=== PATIENT | male | born 1950 | race Caucasian/White ===

== ENCOUNTER 2021-01-05 09:43 | Outpatient (REF) | payer MEDICARE, OTHER, SELFPAY ==
[2021-01-05 10:24] LABS: MANUAL DIFF FLAG NO
[2021-01-05 10:29] LABS: Basophils Absolute Auto 0.1 X10*3/uL (0.0-0.2); Basophils Percent Auto 1.5 % (0-2); Eosinophils Absolute Auto 0.1 X10*3/uL (0.0-0.4); Eosinophils Percent Auto 3.1 % (0-4); Hematocrit 40.2 % (42-52); Hemoglobin 13.9 g/dl (14.0-18.0); Imm Gran Abs Auto 0.02 X10*3/uL (0.00-0.03); Imm Gran Pct Auto 0.4 % (0.0-0.4); Lymphocytes Absolute Auto 1.4 X10*3/uL (1.2-4.9); Lymphocytes Percent Auto 30.5 % (20-40); Mean Corpuscular HGB Conc 34.6 g/dl (31.0-36.0); Mean Corpuscular Hemoglobin 32.2 pg (27.0-33.0); Mean Corpuscular Volume 93.1 fL (80-98); Mean Platelet Volume 9.7 fL (9.4-12.4); Monocytes Absolute Auto 0.5 X10*3/uL (0.1-1.2); Monocytes Percent Auto 10.8 % (2-11); Neutrophils Absolute Auto 2.4 X10*3/uL (2.0-8.3); Neutrophils Percent Auto 53.7 % (45-73); Platelet Count 158 X10*3/uL (160-400); Red Blood Count 4.32 X10*6/uL (4.60-5.80); Red Cell Distribution Width 13.4 % (11.0-16.0); White Blood Count 4.5 X10*3/uL (4.8-10.8)
[2021-01-05 10:54] LABS: Alanine Aminotransferase 44 U/L (0-40); Albumin Level 4.3 g/dL (3.5-5.0); Alkaline Phosphatase 78 U/L (39-117); Anion Gap 13 (12-20); Aspartate Amino Transferase 33 U/L (5-37); Bilirubin Total 1.1 mg/dL (0.0-1.0); Blood Urea Nitrogen 10 mg/dL (9-16); Calcium 9.1 mg/dL (8.4-10.2); Carbon Dioxide 29 mmol/L (22-29); Chloride 103 mmol/L (96-108); Estimated Glomerular Filt Rate > 60; Glucose Random 110 mg/dL (60-115); Potassium 4.1 mmol/L (3.3-5.1); Sodium 141 mmol/L (135-145); Uric Acid 6.9 mg/dL (3.4-7.0)
== END 2021-01-05 09:44 | disposition home or self-care (01) ==
LOC: HO.10HDL 09:43
PROVIDERS: Visit Provider Internal Medicine
DX: I10 Essential (primary) hypertension (principal); M10.9 Gout, unspecified
CPT/HCPCS: 36415; 80053; 84550; 85025

== ENCOUNTER 2021-08-15 08:19 | Outpatient (REF) | payer MEDICARE, OTHER, SELFPAY ==
[2021-08-15 10:13] LABS: MANUAL DIFF FLAG NO
[2021-08-15 10:26] LABS: Basophils Absolute Auto 0.1 X10*3/uL (0.0-0.2); Basophils Percent Auto 1.1 % (0-2); Eosinophils Absolute Auto 0.2 X10*3/uL (0.0-0.4); Eosinophils Percent Auto 4.2 % (0-4); Hematocrit 42.5 % (42-52); Hemoglobin 14.5 g/dl (14.0-18.0); Imm Gran Abs Auto 0.02 X10*3/uL (0.00-0.03); Imm Gran Pct Auto 0.4 % (0.0-0.4); Lymphocytes Absolute Auto 1.8 X10*3/uL (1.2-4.9); Lymphocytes Percent Auto 40.6 % (20-40); Mean Corpuscular HGB Conc 34.1 g/dl (31.0-36.0); Mean Corpuscular Hemoglobin 32.2 pg (27.0-33.0); Mean Corpuscular Volume 94.2 fL (80-98); Mean Platelet Volume 9.9 fL (9.4-12.4); Monocytes Absolute Auto 0.4 X10*3/uL (0.1-1.2); Monocytes Percent Auto 9.5 % (2-11); Neutrophils Percent Auto 44.2 % (45-73); Platelet Count 156 X10*3/uL (160-400); Red Blood Count 4.51 X10*6/uL (4.60-5.80); Red Cell Distribution Width 13.9 % (11.0-16.0); White Blood Count 4.5 X10*3/uL (4.8-10.8)
[2021-08-15 11:01] LABS: Alanine Aminotransferase 42 U/L (0-40); Albumin Level 4.3 g/dL (3.5-5.0); Alkaline Phosphatase 82 U/L (39-117); Anion Gap 13 (12-20); Aspartate Amino Transferase 35 U/L (5-37); Bilirubin Total 1.1 mg/dL (0.0-1.0); Blood Urea Nitrogen 7 mg/dL (9-16); Carbon Dioxide 30 mmol/L (22-29); Chloride 102 mmol/L (96-108); Estimated Glomerular Filt Rate > 60; Glucose Fasting 104 mg/dL (60-99); Potassium 4.2 mmol/L (3.3-5.1); Sodium 141 mmol/L (135-145); Uric Acid 6.8 mg/dL (3.4-7.0)
== END 2021-08-15 08:20 | disposition home or self-care (01) ==
LOC: HO.10HDL 08:19
PROVIDERS: Visit Provider Internal Medicine
DX: I10 Essential (primary) hypertension (principal); Z87.39 Personal history of other diseases of the musculoskeletal system and connective tissue
CPT/HCPCS: 36415; 80053; 84550; 85025

== ENCOUNTER 2021-09-10 07:55 | Outpatient (REF) | payer MEDICARE, OTHER, SELFPAY | END 2021-09-10 07:56 | disposition home or self-care (01) | LOC: HO.CT 07:55 | PROVIDERS: Visit Provider Internal Medicine | DX: Z13.89 Encounter for screening for other disorder (principal) ==

== ENCOUNTER 2021-09-18 08:41 | Outpatient (REF) | payer MEDICARE, OTHER, SELFPAY ==
--- NOTE | ~2021-09-18 | CT_ITS ---
EXAMINATION: CT ABDOMEN AND PELVIS WITHOUT CONTRAST CLINICAL INFORMATION: History of prostate cancer. Elevated liver function tests. COMPARISON: Previous abdominal ultrasound November 2011 TECHNIQUE: Multidetector volumetric imaging was performed from the superior aspect of the liver through the pubic symphysis. Sagittal and coronal reformatted images were obtained on the technologist's workstation. This CT examination was performed using dose optimization techniques as appropriate, variously including the following: *Automated exposure control *Adjustment of mA and/or kV according to patient size (this includes techniques or standardized protocols for targeted exams where dose is matched to indication/reason for exam; i.e. extremities or head) *Use of iterative reconstruction technique DLP: 703 mGy-cm FINDINGS: LUNG BASES: The visualized lung bases are unremarkable. LIVER, GALLBLADDER, AND BILIARY TREE: The liver is normal in size, shape, and attenuation. No focal hepatic lesion or biliary ductal dilatation is present. There are small gallstones in the gallbladder. The gallbladder is otherwise normal. PANCREAS: Unremarkable. SPLEEN: The spleen is slightly enlarged measuring 14 cm in length. ADRENAL GLANDS: Unremarkable. KIDNEYS AND URETERS: There is a 1 cm high attenuation lesion exophytic to the upper pole of the right kidney probably representing a hyperdense cyst. There is a 1 cm low-attenuation lesion exophytic to the lower pole of the left kidney. Hounsfield units without contrast measure 16 and this probably represents a simple cyst. No imaging follow-up needed. The kidneys are otherwise unremarkable. BLADDER: Not optimally distended. May be mild diffuse bladder wall thickening. GASTROINTESTINAL TRACT: The small and large bowel are unremarkable. The appendix is unremarkable. ABDOMINAL WALL: No significant hernia is appreciated. LYMPH NODES: Normal. VASCULAR: Unremarkable. PELVIC VISCERA: There are radiation seeds in the prostate gland. OSSEOUS STRUCTURES: There are degenerative changes of the spine. No fracture or bone lesion is seen. CT/CT abdomen pelvis wo con IMPRESSION: Gallstones. Normal-appearing liver. Slightly enlarged spleen. Bilateral renal cysts. Radiation seeds in the prostate gland. Question mild diffuse bladder wall thickening.
== END 2021-09-18 08:42 | disposition home or self-care (01) ==
LOC: HO.CT 08:41
PROVIDERS: Visit Provider Internal Medicine
DX: Z85.46 Personal history of malignant neoplasm of prostate (principal)
CPT/HCPCS: 74176

== ENCOUNTER 2022-02-07 07:56 | Outpatient (REF) | payer MEDICARE, OTHER, SELFPAY ==
[2022-02-07 11:36] LABS: Cholesterol 127 mg/dL; HDL Cholesterol 33 mg/dL; LDL Cholesterol Calculated 83 mg/dl; Triglycerides 57 mg/dL
[2022-02-07 18:31] LABS: Prostate Specific Antigen Scr 0.07 ng/mL (<0.05-4.0)
== END 2022-02-07 07:57 | disposition home or self-care (01) ==
LOC: HO.HMGCLDS 07:56
PROVIDERS: PCP Internal Medicine; Visit Provider Internal Medicine
DX: Z12.5 Encounter for screening for malignant neoplasm of prostate (principal); E03.9 Hypothyroidism, unspecified; I10 Essential (primary) hypertension; M10.9 Gout, unspecified
CPT/HCPCS: 36415; 80061; 84153

== ENCOUNTER 2022-06-14 08:24 | Outpatient (REF) | payer MEDICARE, OTHER, SELFPAY ==
[2022-06-14 10:50] LABS: MANUAL DIFF FLAG NO
[2022-06-14 10:58] LABS: Basophils Percent Auto 0.3 % (0-2); Eosinophils Absolute Auto 0.1 X10*3/uL (0.0-0.4); Eosinophils Percent Auto 1.7 % (0-4); Hematocrit 39.1 % (42.0-52.0); Hemoglobin 13.3 g/dl (14.0-18.0); Imm Gran Abs Auto 0.01 X10*3/uL (0.00-0.03); Imm Gran Pct Auto 0.3 % (0.0-0.4); Lymphocytes Absolute Auto 1.5 X10*3/uL (1.2-4.9); Lymphocytes Percent Auto 44.1 % (20-40); Mean Corpuscular Hemoglobin 31.8 pg (27.0-33.0); Mean Corpuscular Volume 93.5 fL (80.0-98.0); Mean Platelet Volume 9.8 fL (9.4-12.4); Monocytes Absolute Auto 0.3 X10*3/uL (0.1-1.2); Monocytes Percent Auto 8.6 % (2-11); Neutrophils Absolute Auto 1.6 x10*3/uL (2.0-8.3); Platelet Count 223 X10*3/uL (160-400); Red Blood Count 4.18 X10*6/uL (4.60-5.80); Red Cell Distribution Width 13.6 % (11.0-16.0); White Blood Count 3.5 X10*3/uL (4.8-10.8)
[2022-06-14 11:13] LABS: Alanine Aminotransferase 43 U/L (0-40); Albumin Level 4.1 g/dL (3.5-5.0); Alkaline Phosphatase 89 U/L (39-117); Anion Gap 14 (12-20); Aspartate Amino Transferase 40 U/L (5-37); Bilirubin Total 0.8 mg/dL (0.0-1.0); Blood Urea Nitrogen 7 mg/dL (9-16); Calcium 8.6 mg/dL (8.4-10.2); Carbon Dioxide 27 mmol/L (22-29); Chloride 108 mmol/L (96-108); Estimated Glomerular Filt Rate > 60; Glucose Fasting 90 mg/dL (60-99); Potassium 4.1 mmol/L (3.3-5.1); Sodium 145 mmol/L (135-145); Total Protein 6.7 g/dL (6.5-8.0)
== END 2022-06-14 08:25 | disposition home or self-care (01) ==
LOC: HO.10HDL 08:24
PROVIDERS: Visit Provider Internal Medicine
DX: I10 Essential (primary) hypertension (principal); M10.9 Gout, unspecified
CPT/HCPCS: 36415; 80053; 85025

== ENCOUNTER 2023-02-12 08:02 | Outpatient (REF) | payer MEDICARE, OTHER, SELFPAY ==
[2023-02-12 10:37] LABS: MANUAL DIFF FLAG NO
[2023-02-12 10:46] LABS: Basophils Absolute Auto 0.1 X10*3/uL (0.0-0.2); Basophils Percent Auto 1.4 % (0-2); Eosinophils Absolute Auto 0.1 X10*3/uL (0.0-0.4); Eosinophils Percent Auto 3.2 % (0-4); Hematocrit 42.2 % (42.0-52.0); Hemoglobin 14.4 g/dl (14.0-18.0); Imm Gran Abs Auto 0.01 X10*3/uL (0.00-0.03); Imm Gran Pct Auto 0.2 % (0.0-0.4); Lymphocytes Absolute Auto 1.7 X10*3/uL (1.2-4.9); Lymphocytes Percent Auto 37.3 % (20-40); Mean Corpuscular HGB Conc 34.1 g/dl (31.0-36.0); Mean Corpuscular Hemoglobin 32.7 pg (27.0-33.0); Mean Corpuscular Volume 95.9 fL (80.0-98.0); Monocytes Absolute Auto 0.5 X10*3/uL (0.1-1.2); Monocytes Percent Auto 10.9 % (2-11); Neutrophils Absolute Auto 2.1 x10*3/uL (2.0-8.3); Platelet Count 148 X10*3/uL (160-400); Red Cell Distribution Width 15.5 % (11.0-16.0); White Blood Count 4.4 X10*3/uL (4.8-10.8)
[2023-02-12 11:14] LABS: Alanine Aminotransferase 31 U/L (0-40); Albumin Level 4.1 g/dL (3.5-5.0); Alkaline Phosphatase 87 U/L (39-117); Anion Gap 14 (12-20); Aspartate Amino Transferase 28 U/L (5-37); Bilirubin Total 1.4 mg/dL (0.0-1.0); Blood Urea Nitrogen 10 mg/dL (9-16); Calcium 8.9 mg/dL (8.4-10.2); Carbon Dioxide 27 mmol/L (22-29); Chloride 104 mmol/L (96-108); Cholesterol 125 mg/dL; Estimated Glomerular Filt Rate > 60; Glucose Fasting 110 mg/dL (60-99); HDL Cholesterol 29 mg/dL; LDL Cholesterol Calculated 82 mg/dl; Potassium 3.9 mmol/L (3.3-5.1); Sodium 141 mmol/L (135-145); Total Protein 6.6 g/dL (6.5-8.0); Triglycerides 72 mg/dL; Uric Acid 7.1 mg/dL (3.4-7.0)
== END 2023-02-12 08:03 | disposition home or self-care (01) ==
LOC: HO.10HDL 08:02
PROVIDERS: Visit Provider Internal Medicine
DX: Z00.00 Encounter for general adult medical examination without abnormal findings (principal); Z87.39 Personal history of other diseases of the musculoskeletal system and connective tissue; I10 Essential (primary) hypertension; M10.9 Gout, unspecified
CPT/HCPCS: 36415; 80053; 80061; 84550; 85025

== ENCOUNTER 2023-10-06 07:44 | Outpatient (REF) | payer MEDICARE, OTHER, SELFPAY ==
[2023-10-06 10:34] LABS: MANUAL DIFF FLAG NO
[2023-10-06 10:50] LABS: Basophils Absolute Auto 0.1 X10*3/uL (0.0-0.2); Basophils Percent Auto 1.4 % (0-2); Eosinophils Absolute Auto 0.2 X10*3/uL (0.0-0.4); Eosinophils Percent Auto 4.5 % (0-4); Hematocrit 41.5 % (42.0-52.0); Hemoglobin 14.1 g/dl (14.0-18.0); Imm Gran Abs Auto 0.01 X10*3/uL (0.00-0.03); Imm Gran Pct Auto 0.3 % (0.0-0.4); Lymphocytes Absolute Auto 1.4 X10*3/uL (1.2-4.9); Lymphocytes Percent Auto 38.9 % (20-40); Mean Corpuscular Hemoglobin 32.7 pg (27.0-33.0); Mean Corpuscular Volume 96.3 fL (80.0-98.0); Mean Platelet Volume 10.2 fL (9.4-12.4); Monocytes Absolute Auto 0.4 X10*3/uL (0.1-1.2); Monocytes Percent Auto 10.6 % (2-11); Neutrophils Absolute Auto 1.6 x10*3/uL (2.0-8.3); Neutrophils Percent Auto 44.3 % (45-73); Platelet Count 132 X10*3/uL (160-400); Red Blood Count 4.31 X10*6/uL (4.60-5.80); Red Cell Distribution Width 13.2 % (11.0-16.0); White Blood Count 3.6 X10*3/uL (4.8-10.8)
[2023-10-06 11:21] LABS: Alanine Aminotransferase 71 U/L (0-40); Alkaline Phosphatase 82 U/L (39-117); Anion Gap 10 (12-20); Aspartate Amino Transferase 52 U/L (5-37); Bilirubin Total 1.1 mg/dL (0.0-1.0); Blood Urea Nitrogen 15 mg/dL (9-16); Calcium 8.9 mg/dL (8.4-10.2); Carbon Dioxide 31 mmol/L (22-29); Chloride 103 mmol/L (96-108); Estimated Glomerular Filt Rate > 60; Glucose Random 112 mg/dL (60-115); Potassium 3.6 mmol/L (3.3-5.1); Sodium 140 mmol/L (135-145); Total Protein 6.7 g/dL (6.5-8.0); Uric Acid 7.1 mg/dL (3.4-7.0)
== END 2023-10-06 07:45 | disposition home or self-care (01) ==
LOC: HO.10HDL 07:44
PROVIDERS: Visit Provider Internal Medicine
DX: I10 Essential (primary) hypertension (principal); M10.9 Gout, unspecified
CPT/HCPCS: 36415; 80053; 84550; 85025

== ENCOUNTER 2024-01-12 07:35 | Outpatient (REF) | payer MEDICARE, OTHER, SELFPAY ==
[2024-01-12 07:52] LABS: MANUAL DIFF FLAG NO
[2024-01-12 08:00] LABS: Basophils Percent Auto 0.6 % (0-2); Eosinophils Absolute Auto 0.2 X10*3/uL (0.0-0.4); Eosinophils Percent Auto 3.3 % (0-4); Hematocrit 40.5 % (42.0-52.0); Imm Gran Abs Auto 0.02 X10*3/uL (0.00-0.03); Imm Gran Pct Auto 0.4 % (0.0-0.4); Lymphocytes Absolute Auto 1.5 X10*3/uL (1.2-4.9); Lymphocytes Percent Auto 31.2 % (20-40); Mean Corpuscular HGB Conc 34.6 g/dl (31.0-36.0); Mean Corpuscular Hemoglobin 32.9 pg (27.0-33.0); Mean Corpuscular Volume 95.1 fL (80.0-98.0); Monocytes Absolute Auto 0.4 X10*3/uL (0.1-1.2); Monocytes Percent Auto 9.2 % (2-11); Neutrophils Absolute Auto 2.6 x10*3/uL (2.0-8.3); Neutrophils Percent Auto 55.3 % (45-73); Platelet Count 142 X10*3/uL (160-400); Red Blood Count 4.26 X10*6/uL (4.60-5.80); Red Cell Distribution Width 15.1 % (11.0-16.0); White Blood Count 4.8 X10*3/uL (4.8-10.8)
[2024-01-12 08:20] LABS: Alanine Aminotransferase 28 U/L (0-40); Alkaline Phosphatase 106 U/L (39-117); Anion Gap 11 (12-20); Aspartate Amino Transferase 26 U/L (5-37); Blood Urea Nitrogen 7 mg/dL (9-16); Carbon Dioxide 30 mmol/L (22-29); Chloride 102 mmol/L (96-108); Estimated Glomerular Filt Rate > 60; Glucose Random 110 mg/dL (60-115); Potassium 3.8 mmol/L (3.3-5.1); Sodium 139 mmol/L (135-145); Total Protein 6.9 g/dL (6.5-8.0); Uric Acid 7.7 mg/dL (3.4-7.0)
== END 2024-01-12 07:36 | disposition home or self-care (01) ==
LOC: HO.LAB 07:35
PROVIDERS: PCP Internal Medicine; Visit Provider Internal Medicine
DX: M54.9 Dorsalgia, unspecified (principal); M10.9 Gout, unspecified; R79.89 Other specified abnormal findings of blood chemistry; L40.9 Psoriasis, unspecified; D69.6 Thrombocytopenia, unspecified
CPT/HCPCS: 36415; 80053; 84550; 85025

== ENCOUNTER 2024-09-07 07:58 | Outpatient (REF) | payer MEDICARE, OTHER, SELFPAY ==
[2024-09-07 08:17] LABS: MANUAL DIFF FLAG NO
[2024-09-07 09:05] LABS: Basophils Absolute Auto 0.1 X10*3/uL (0.0-0.2); Basophils Percent Auto 1.2 % (0-2); Eosinophils Absolute Auto 0.1 X10*3/uL (0.0-0.4); Hematocrit 42.6 % (42.0-52.0); Hemoglobin 14.9 g/dl (14.0-18.0); Imm Gran Abs Auto 0.02 X10*3/uL (0.00-0.03); Imm Gran Pct Auto 0.5 % (0.0-0.4); Lymphocytes Absolute Auto 1.9 X10*3/uL (1.2-4.9); Mean Corpuscular Hemoglobin 33.3 pg (27.0-33.0); Mean Corpuscular Volume 95.3 fL (80.0-98.0); Mean Platelet Volume 9.5 fL (9.4-12.4); Monocytes Absolute Auto 0.4 X10*3/uL (0.1-1.2); Monocytes Percent Auto 9.8 % (2-11); Neutrophils Absolute Auto 1.8 x10*3/uL (2.0-8.3); Neutrophils Percent Auto 42.5 % (45-73); Platelet Count 138 X10*3/uL (160-400); Red Blood Count 4.47 X10*6/uL (4.60-5.80); Red Cell Distribution Width 14.3 % (11.0-16.0); White Blood Count 4.3 X10*3/uL (4.8-10.8)
[2024-09-07 09:44] LABS: Albumin Level 4.4 g/dL (3.5-5.0); Alkaline Phosphatase 87 U/L (39-117); Anion Gap 11 (12-20); Aspartate Amino Transferase 51 U/L (5-37); Bilirubin Total 1.3 mg/dL (0.0-1.0); Blood Urea Nitrogen 9 mg/dL (9-16); Calcium 9.8 mg/dL (8.4-10.2); Carbon Dioxide 32 mmol/L (22-29); Chloride 102 mmol/L (96-108); Estimated Glomerular Filt Rate > 60; Glucose Random 97 mg/dL (60-115); Potassium 4.2 mmol/L (3.3-5.1); Sodium 141 mmol/L (135-145); Total Protein 7.1 g/dL (6.5-8.0)
[2024-09-07 10:47] LABS: Alanine Aminotransferase 53 U/L (0-40)
== END 2024-09-07 07:59 | disposition home or self-care (01) ==
LOC: HO.LAB 07:58
PROVIDERS: PCP Internal Medicine; Visit Provider Internal Medicine
DX: M10.9 Gout, unspecified (principal); I10 Essential (primary) hypertension
CPT/HCPCS: 36415; 80053; 84550; 85025

== ENCOUNTER 2025-02-21 08:51 | Outpatient (AMB) | payer MEDICARE, OTHER, SELFPAY ==
--- NOTE | 2025-02-21 08:53 | A.OFFPC_ITS ---
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 Accompanied by: Self / Same As Patient Allergies caffeine [Caffeine] Allergy (Mild, Unverified 02/21/25 08:54) PALPATATIONS Tobacco use date assessed: 02/21/25 Fall risk assessment: No Falls in past year Last assessed Fall Risk: 02/21/25 Dental Screening Dental Screen Date: 02/21/25 Did you have a dental visit in the last 12 months?: Yes Did you have a dental problem in the last 6 months where you did not have access to dental care?: No [facility] Medical History (Updated 02/21/25 @ 09:25 by Hawk Wade MD) Chronic gout Basal cell carcinoma (BCC) Pre-diabetes Essential hypertension Prostate cancer Surgical History (Updated 02/21/25 @ 09:09 by Hawk Wade MD) History of colonoscopy (09/23/18) Family History (Updated 02/21/25 @ 09:08 by Nancy Lerma CMA) Mother No problems noted. Father No problems noted. Social History Housing: House Patient Tobacco Use Status: Former Tobacco user e-Cigarette/Vaping Use: Former Use service: No Current occupational status: retired Cognitive needs: No Hearing needs: No Vision needs: Yes (rx glasses) Questionnaire PHQ-9 Over the last 2 weeks, how often have you been bothered by any of the following problems? 1. Little interest or pleasure in doing things: not at all 2. Feeling down, depressed, or hopeless: not at all 3. Trouble falling or staying asleep, or sleeping too much: not at all 4. Feeling tired or having little energy: not at all 5. Poor appetite or overeating: not at all 6. Feeling bad about yourself - or that you are a failure or have let yourself or your family down: not at all 7. Trouble concentrating on things, such as reading the newspaper or watching television: not at all 8. Moving or speaking so slowly that other people could have noticed. Or the opposite - being so fidgety or restless that you have been moving around a lot more than usual: not at all 9. Thoughts that you would be better off or of hurting yourself in some way: not at all Total score: 0 Source: Developed by Drs. Cristóbal Duckworth, Robyn Hauser, Primo Oleary and colleagues, with an educational diego from [employer]. Thrive Questionnaire Date Thrive assessed: 02/21/25 I am a: Patient Within the past 12 months, did the food you bought not last and you didn't have the money to get more?: Never true Within the past 12 months, did you worry whether your food would run out before you got money to buy more?: Never true Do you have trouble paying for medicines?: No Do you have trouble getting transportation to medical appointments?: No Do you have trouble paying your heating and electricity bill?: No Do you have trouble taking care of your child, family member or friend?: No Do you have trouble with day-to-day activities such as bathing, preparing meals, shopping, managing finances, etc.?: No Are you currently unemployed and looking for a job?: No Are you interested in more education?: No THRIVE Score: 0 AUDIT C Alcohol Use Questionnaire (AUDIT-C) 1. How often do you have a drink containing alcohol?: 2-4 times a month 2. How many drinks containing alcohol do you have on a typical day when you are drinking?: 1 or 2 3. How often do you have six or more drinks on one occasion?: Less than monthly Total Score: 3 ALEJANDRO-7 AMB Questionnaire ALEJANDRO-7 Date ALEJANDRO - 7 assessed: 02/21/25 Feeling nervous, anxious, or on edge: 0 = Not at all Not being able to stop or control worryin = Not at all Worrying too much about different things: 0 = Not at all Trouble relaxin = Not at all Being so restless that it is hard to sit still: 0 = Not at all Becoming easily annoyed or irritable: 0 = Not at all Feeling afraid as if something awful might happen: 0 = Not at all Total ALEJANDRO-7 score (0-4 normal; 5-9 mild; 10-14 moderate; 15-21 severe): 0 Source: Developed by Drs. Cristóbal Duckworth, Robyn Hauser, Primo Oleary and colleagues, with an educational diego from [employer]. Physical exam (Primary Care) Vital Signs: Last Vital Signs Temp 97.8 F 02/21/25 08:57 Pulse 69 02/21/25 08:57 BP 134/80 02/21/25 08:57 Pulse Ox 99 02/21/25 08:57 Oxygen Delivery Method Room Air 02/21/25 08:57 BMI result Body Mass Index 30.7 Tobacco/Smoking Status: Tobacco use Status Tobacco use date assessed 02/21/25 02/21/25 08:59 Patient Tobacco Use Status Former Tobacco user 02/21/25 09:07 e-Cigarette/Vaping Use Former Use 02/21/25 09:07 PHQ-9: PHQ-9 Score PHQ-9: Total score 0 02/21/25 09:07 Thrive Assessment: Date of Thrive Assessment Date Thrive assessed 02/21/25 02/21/25 08:59 Coding Level of Care Code New Pt Level 4 (75414) Complex EM visit Add On G2211 Diagnoses Prostate cancer C61 History of colonoscopy with polypectomy Z98.890; Z86.0100 Essential hypertension I10 Pre-diabetes R73.03 Basal cell carcinoma (BCC) C44.91 Chronic gout M1A.9XX0 Assessment & Plan Assessment & Plan (1) Prostate cancer: Code(s): C61 - Malignant neoplasm of prostate Category: Medical Plan: Condition is stable, PSA to be checked (2) History of colonoscopy with polypectomy: Code(s): Z98.890 - Other specified postprocedural states; Z86.0100 - Personal history of colon polyps, unspecified Plan: Continue current meds (3) Essential hypertension: Code(s): I10 - Essential (primary) hypertension Category: Medical Plan: Blood pressure is in range. Continue meds at same dosage. (4) Pre-diabetes: Code(s): R73.03 - Prediabetes Category: Medical Plan: A1c has been ordered (5) Basal cell carcinoma (BCC): Code(s): C44.91 - Basal cell carcinoma of skin, unspecified Category: Medical Plan: Mohs surgery recently done. (6) Chronic gout: Code(s): M1A.9XX0 - Chronic gout, unspecified, without tophus (tophi) Category: Medical Plan: Continue Allopurinol started. Plan History of Present Illness The patient is a 74-year-old male presenting for a follow-up on multiple chronic conditions and overall health monitoring. His medical background includes treatment for prostate cancer with radiation therapy, with follow-up pending on PSA levels. Despite the completion of a lab order, the tests were not conducted due to unclear instructions regarding current protocols. He has been diagnosed with essential hypertension, maintained on Lisinopril and Furosemide, and gout, for which he continues Allopurinol due to past recurrence and a probable familial predisposition to arthritis. 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 Liver function tests have occasionally shown elevations linked to the presence of gallstones, with complaints of consistent back pain potentially linked to these findings but not fully explored. His weight impacts liver function results, with fluctuations noted. A recent surgical intervention included a Mohs procedure for cancer removal adjacent to the right ear. The patient actively manages his health through boating and household activities, without significant employment or external occupational demands. However, he reports age-related discomfort and muscular pains. Social History - Retired, with previous careers in management and sales. - Primary residence is not fixed during summer months due to living on a boat. - Engages actively in boating and fishing activities. - Reported active lifestyle, maintaining high levels of physical activity. - Lives in a multistory house, requiring frequent climbing of stairs. Review of Systems - Vision: Reports difficulty with night driving due to macular degeneration and detached iris. - Musculoskeletal: Denies limitations of movement, but reports upper back pain. - Gastrointestinal: Reports past liver function abnormalities and presence of gallstones. Physical Exam General: Appearance normal, both eyes and all related structures Nutritional Appearance: Well nourished Orientation/consciousness: Patient oriented x3 Limitations: Limited night driving due to vision issues Head: Normal to inspection, except for recent Mohs surgery below the right ear Neck: Normal visual inspection Chest: Normal palpation of entire chest wall Respiratory: Normal respiratory effort Neurology: Patient oriented x3 Right ear: Surgical wound, healing after Mohs surgery. Results - Labs pending for PSA levels. - Past elevation in liver function tests associated with gallstones. Plan I will re-order PSA levels electronically in light of past non-completion. Continuation on current antihypertensive and gout medications is advised. Vision issues, related to macular degeneration and detached iris, will be monitored without immediate changes to the management plan. Liver function abnormalities, related to gallstones, will be checked post-weight evaluation. Management of back pain due to possible positional causes will include further investigation as per inflammatory marker results. I plan to follow up on all test results to provide further management guidance and address any other developing issues. Patient was informed and verbally consented to the use of an ambient scribe for clinic note documentation during this visit. Discussion Notes I explained the importance of completing the ordered PSA tests given his history of prostate cancer, ensuring he understands the electronic processes now established. I reconfirmed continuation on current hypertensive and gout treatment regimens. We discussed the influence of lifestyle on gallstones and liver function, and the need for further tests to manage back pain effectively. The necessity of regular follow-ups was emphasized, and I will call with any significant lab results. I advised contacting the pharmacy a week ahead for medication refills to avoid running out. Patient Instructions - Complete PSA testing as ordered electronically. - Continue current medications: Lisinopril, Furosemide, and Allopurinol. - Monitor for worsening symptoms, particularly with back pain or vision changes. - Order medication refills ahead of time by contacting the pharmacy. - I will call with lab results; seek evaluation sooner for any new or worsening symptoms. - Maintain active lifestyle, manage weight for overall health benefit. Orders: Orders Thyroid Stimulating Hormone Today I10 - Essential (primary) hypertension, R73.03 - Prediabetes C Reactive Protein Today I10 - Essential (primary) hypertension, R73.03 - Prediabetes Basic Metabolic Panel Today I10 - Essential (primary) hypertension, R73.03 - Prediabetes Complete Blood Count no Diff Today I10 - Essential (primary) hypertension, R73.03 - Prediabetes Liver Panel Today I10 - Essential (primary) hypertension, R73.03 - Prediabetes Lipid Panel Today I10 - Essential (primary) hypertension, R73.03 - Prediabetes UA and rflx microscopic Today I10 - Essential (primary) hypertension, R73.03 - Prediabetes Prostate Specific Antigen Scr Today I10 - Essential (primary) hypertension, R73.03 - Prediabetes Hemoglobin A1c Today R73.03 - Prediabetes
[2025-02-21 08:57] VITALS: BP 134/80; PULSE 69; TEMP 36.6; O2SAT 99; BMI 30.7
--- OUTSIDE RECORDS SUMMARY | 2025-02-21 09:39 | XMS_ITS | Clinical Summary ---
Author Organization [employer] Address [address] [place] [address] Care Team Providers Care Trimmer Climber Name Role Phone Md, Unknown Primary Care Provider Unavailabl e Allergies No known active allergies Medications allopurinoL (ZYLOPRIM) 100 mg tablet TAKE ONE TABLET BY MOUTH EVERY DAY 03/23/2021 Active furosemide (LASIX) 20 mg tablet as directed 03/23/2021 Active lisinopriL (PRINIVIL,ZESTR IL) 40 mg tablet TAKE ONE TABLET BY MOUTH EVERY DAY 03/23/2021 Active Social History Tobacco Use Types Packs/Day Years Used Date Smoking Tobacco: Never Assessed Sex and Gender Information Value Date Recorded Sex Assigned at Not on file Legal Sex Male 12:02 PM EDT Gender Identity Not on file Sexual Orientation Not on file Last Filed Vital Signs Vital Sign Reading Time Taken Comments Blood Pressure - - Pulse - - Temperature - - Respiratory Rate - - Oxygen Saturation - - Inhaled Oxygen Concentration - - Weight 104.3 kg (230 lb) 05/27/2021 12:09 PM EDT Height 185.4 cm (6' 1 ) 05/27/2021 12:09 PM EDT Body Mass Index 30.34 05/27/2021 12:09 PM EDT Plan of Treatment Health Maintenance Due Date Last Done Comments CT Colonography 1952 Colonoscopy 1952 Colorectal Cancer Screening 1952 FIT-DNA 1952 FIT 1952 FOBT 1950 Sigmoidoscopy 1950 Medicare Annual Wellness Visit 1970 Tdap and Td Vaccines Adult 1971 Pneumococcal Vaccine: 50+ Ye ars (1 of 1 - PCV) 2002 Zoster Vaccines (1 of 2) 2002 Fall Risk Screening 2017 COVID-19 Vaccine (1 - 2023-2 5 season) 2024 Influenza Vaccine (Season Ended) 2025 RSV 60+ (1 - 1-dose 75+ series) 2027 HIB Vaccines Aged Out No longer eligi ble based on patient's age to complete this topic HPV Vaccines Aged Out No longer eligi ble based on patient's age to complete this topic Hepatitis A Vaccines Aged Out No long er eligible based on patient's age to complete this topic IPV Vaccines Aged Out No longer eligi ble based on patient's age to complete this topic Meningococcal Vaccine Aged Out No bessie jose elias eligible based on patient's age to complete this topic RSV <20 Months Aged Out No longer mayra gible based on patient's age to complete this topic Insurance MEDICARE [employer] [place] [id number] Care Teams Trimmer Climber Relationship Specialty Start Date End Date , Unknown 1 Dont Change PCP - General 05/27/21
== END 2025-02-21 09:22 | disposition home or self-care (01) ==
LOC: HO.HMCHD 08:52
PROVIDERS: PCP Internal Medicine; Visit Provider Internal Medicine
DX: C61 Malignant neoplasm of prostate (principal); Z98.890 Other specified postprocedural states; Z86.0100 Personal history of colon polyps, unspecified; I10 Essential (primary) hypertension; R73.03 Prediabetes; C44.91 Basal cell carcinoma of skin, unspecified; M1A.9XX0 Chronic gout, unspecified, without tophus (tophi)

== ENCOUNTER → 2025-02-21 08:51 | Outpatient (BNVA) | payer MEDICARE, OTHER, SELFPAY | PROVIDERS: PCP Internal Medicine; Visit Provider Internal Medicine | DX: C61 Malignant neoplasm of prostate (principal); I10 Essential (primary) hypertension; R73.03 Prediabetes; C44.91 Basal cell carcinoma of skin, unspecified; M1A.9XX0 Chronic gout, unspecified, without tophus (tophi); Z98.890 Other specified postprocedural states; Z86.0100 Personal history of colon polyps, unspecified | CPT/HCPCS: 96127; 99202 ==

== ENCOUNTER 2025-03-14 07:38 | Outpatient (REF) | payer MEDICARE, OTHER, SELFPAY ==
[2025-03-14 10:01] LABS: Hemoglobin 15.4 g/dl (14.0-18.0); Mean Corpuscular Hemoglobin 32.8 pg (27.0-33.0); Mean Corpuscular Volume 93.8 fL (80.0-98.0); Mean Platelet Volume 9.8 fL (9.4-12.4); Platelet Count 146 X10*3/uL (160-400); Red Blood Count 4.69 X10*6/uL (4.60-5.80); Red Cell Distribution Width 14.6 % (11.0-16.0); White Blood Count 4.9 X10*3/uL (4.8-10.8)
[2025-03-14 10:02] LABS: Appearance Urine Clear; Color Urine Yellow; Glucose Urine UA Negative (Negative); Leukocyte Esterase Urine Trace (Negative); Nitrite Urine Negative (Negative); UMIC TRIGGER UA YES; Urine Blood Negative (Negative); Urine Ketones Negative (Negative); Urine Protein Negative (Neg-Trace)
[2025-03-14 10:06] LABS: Bacteria Urine None Seen (None Seen); Hyaline Casts Urine 0-2 /LPF (0-2); RBC Urine 0-2 /HPF (0-2)
[2025-03-14 10:07] LABS: Estimated Average Glucose 80 mg/dL; Hemoglobin A1C 96.0368 umol/L; Hemoglobin A1c % 4.4 % (<6.0); Total Hemoglobin (HGBA1C) 3989.0216 umol/L
[2025-03-14 11:03] LABS: Prostate Specific Antigen Scr < 0.10 ng/mL (<0.05-4.0)
[2025-03-14 11:04] LABS: Alanine Aminotransferase 54 U/L (0-40); Albumin Level 4.3 g/dL (3.5-5.0); Alkaline Phosphatase 100 U/L (39-117); Anion Gap 13 (12-20); Aspartate Amino Transferase 43 U/L (5-37); Bilirubin Direct 0.4 mg/dL (0.0-0.5); Bilirubin Total 1.2 mg/dL (0.0-1.0); Blood Urea Nitrogen 9 mg/dL (9-16); C Reactive Protein 0.93 mg/dL (< or = 0.50); Carbon Dioxide 30 mmol/L (22-29); Chloride 102 mmol/L (96-108); Cholesterol 131 mg/dL (<200); Estimated Glomerular Filt Rate > 60; Glucose Random 109 mg/dL (60-115); HDL Cholesterol 38 mg/dL (>40); LDL Cholesterol Calculated 83 mg/dL (<100); Potassium 4.1 mmol/L (3.3-5.1); Sodium 141 mmol/L (135-145); Total Protein 7.1 g/dL (6.5-8.0); Triglycerides 50 mg/dL (<150)
[2025-03-14 11:06] LABS: Thyroid Stimulating Hormone 3.61 uIU/mL (0.32-4.0)
== END 2025-03-14 07:39 | disposition home or self-care (01) ==
LOC: HO.10HDL 07:38
PROVIDERS: Visit Provider Internal Medicine
DX: I10 Essential (primary) hypertension (principal); R73.03 Prediabetes; Z12.5 Encounter for screening for malignant neoplasm of prostate
CPT/HCPCS: 36415; 80048; 80061; 80076; 81001; 81003; 83036; 84153; 84443; 85027; 86140

== ENCOUNTER 2025-09-12 08:46 | Outpatient (AMB) | payer MEDICARE, OTHER, SELFPAY ==
--- NOTE | 2025-09-12 08:14 | A.OFFPC_ITS ---
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 Hypertension-initial blood pressure in the office 144/78, 150/84 on recheck. On furosemide 20 mg daily and lisinopril 40 mg daily. Reports he is not concerned about his blood pressures, he is asymptomatic. Chronic gout-obtain uric acid level. On allopurinol 100 mg daily Macular degeneration-follows with Prostate cancer/bladder mass-follows with Dr. Ramirez at [facility]. s/p radical prostatectomy 2014, and radiation, completed 2016. Recently found to have bladder mass. Underwent TURBT 08/22. Awaiting biopsy result, appt Sep 20. Denies any gross hematuria. Concerns: L shoulder pain- possibly injured while working on his boat. Reports he had his forearms in pronation and then lifted his arms above his head when the pain began. The pain has been constant since, waxing and waning in severity. There is weakness but he reports this is more secondary to pain and guarding. Pain exacerbated by raising his arms above his head and across his body. He states that he does not want to fully address this at this time as he would like to continue working through his other ongoing issues. Health maintenance: Last colonoscopy 09/2018 with 5 year follow-up advised. Dr. Mcintosh ROS: see hpi EXAM: Constitutional - Awake and Alert, No apparent distress Eyes - PERRL Cardiovascular - S1S2, RRR, No edema Respiratory - Normal lung expansion, Normal respiratory effort, No respiratory distress, CTA bilaterally Extremities - no calf tenderness bilaterally, no swelling Skin - Warm/Dry Neurological - Alert & oriented x3 Psychological - Appropriate [facility] Medical History (Updated 09/12/25 @ 13:44 by JOSE ELIAS Espinoza) Bladder mass Macular degeneration Chronic gout Basal cell carcinoma (BCC) Pre-diabetes Essential hypertension Prostate cancer Surgical History (Updated 09/12/25 @ 13:44 by JOSE ELIAS Espinoza) History of transurethral resection of bladder tumor (TURBT) History of radical prostatectomy History of colonoscopy (09/23/18) Family History (Updated 02/21/25 @ 09:08 by Nancy Lerma MA) Mother No problems noted. Father No problems noted. Social History Housing: House Patient Tobacco Use Status: Former Tobacco user Years Smoked: 10 years-quit 40 yrs ago e-Cigarette/Vaping Use: Never Used service: No Current occupational status: retired Cognitive needs: No Hearing needs: No Vision needs: Yes (rx glasses) Questionnaire Thrive Questionnaire Date Thrive assessed: 02/21/25 ALEJANDRO-7 AMB Questionnaire ALEJANDRO-7 Date ALEJANDRO - 7 assessed: 02/21/25 Source: Developed by Drs. Cristóbal Duckworth, Robyn Hauser, Primo Oleary and colleagues, with an educational diego from [employer]. Physical exam (Primary Care) Vital Signs: Last Vital Signs Temp 97.8 F 09/12/25 08:52 Pulse 74 09/12/25 08:52 Resp 18 09/12/25 08:52 BP 144/78 H 09/12/25 08:52 Pulse Ox 99 09/12/25 08:52 Oxygen Delivery Method Room Air 09/12/25 08:52 BMI result Body Mass Index 30.4 Tobacco/Smoking Status: Tobacco use Status Tobacco use date assessed 02/21/25 09/12/25 08:15 Patient Tobacco Use Status Former Tobacco user 09/12/25 08:15 e-Cigarette/Vaping Use Never Used 09/12/25 08:54 Thrive Assessment: Date of Thrive Assessment Date Thrive assessed 02/21/25 09/12/25 08:15 Coding Level of Care Code New Pt Level 4 (81180) Complex EM visit Add On G2211 Diagnoses Prostate cancer C61 Essential hypertension I10 Pre-diabetes R73.03 Chronic gout M1A.9XX0 Bladder mass N32.89 Assessment & Plan Assessment & Plan (1) Prostate cancer: Comment: s/p radical prostatectomy and radiation. PVU Code(s): C61 - Malignant neoplasm of prostate Category: Medical Plan: Appears to be in remission. Continue following with [facility] (2) Essential hypertension: Code(s): I10 - Essential (primary) hypertension Category: Medical Plan: Uncontrolled on recheck. Continue lisinopril 40 mg daily and furosemide 20 mg daily. Given pressures are uncontrolled greater than 140/90, medication adjustment is advised. However, the patient declines at this time. He is currently asymptomatic. He can check his blood pressures at home and if elevated he can reach out to the office. He is aware of the fact that his pressures are uncontrolled though he disagrees. Elevated cardiovascular risk secondary to uncontrolled pressures. (3) Pre-diabetes: Code(s): R73.03 - Prediabetes Category: Medical Plan: A1c ordered. Diet lower in refined sugars and simple carbohydrates as well as highly processed foods. (4) Chronic gout: Code(s): M1A.9XX0 - Chronic gout, unspecified, without tophus (tophi) Category: Medical Plan: Check uric acid level. Continue allopurinol 100 mg daily (5) Bladder mass: Code(s): N32.89 - Other specified disorders of bladder Category: Medical Plan: Follow-up with urology as scheduled on 09/20. Advised to have results sent to the office for further evaluation. Plan Follow-up in the office in 6 months. Labs to be completed today Orders: Orders Basic Metabolic Panel Today C61 - Malignant neoplasm of prostate, I10 - Essential (primary) hypertension, M1A.9XX0 - Chronic gout, unspecified, without tophus (tophi), R73.03 - Prediabetes Lipid Panel Today C61 - Malignant neoplasm of prostate, I10 - Essential (primary) hypertension, M1A.9XX0 - Chronic gout, unspecified, without tophus (tophi), R73.03 - Prediabetes Hemoglobin A1c Today C61 - Malignant neoplasm of prostate, I10 - Essential (primary) hypertension, M1A.9XX0 - Chronic gout, unspecified, without tophus (tophi), R73.03 - Prediabetes XR shoulder LT min 2V Today M25.512 - Pain in left shoulder Liver Panel Today C61 - Malignant neoplasm of prostate, I10 - Essential (primary) hypertension, M1A.9XX0 - Chronic gout, unspecified, without tophus (tophi), R73.03 - Prediabetes
[2025-09-12 08:52] VITALS: BP 144/78; PULSE 74; RESP 18; TEMP 36.6; O2SAT 99; BMI 30.4
--- OUTSIDE RECORDS SUMMARY | 2025-09-12 09:22 | XMS_ITS | Encounter Summary ---
Author Organization [facility] Address [address] [place] [address] Care Team Providers Care Office Technologist Name Role Phone Physician, Pcp Unknown Primary Care Provider Lizzette vailable Encounter Details Date Type Department Care Team (Late st Contact Info) Description 08/03/2025 Lab Requisition [facility] - Main Lab [address] [facility] [place] [address] Placido Ramirez MD [address] [facility] [address] [place] [id number] Gross hematuria Social History Tobacco Use Types Packs/Day Years Used Date Smoking Tobacco: Never Assessed Sex and Gender Information Value Date Recorded Sex Assigned at Not on file Legal Sex Male 10:22 AM EST Gender Identity Not on file Sexual Orientation Not on file documented as of this encounter Plan of Treatment Not on file documented as of this encounter Procedures Procedure Name Priority Date/Time Associated Diagnosis Comments NON-GYNECOLOGIC CYTOLOGY Routine 07/27/2025 12:00 AM EDT Gross hematuria documented in this encounter Results * Non-gynecologic cytology (07/27/2025 12:00 AM EDT) Final Diagnosis A. 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 Note: Abnormal results are considered suspicious for urothelial carcinoma. 08/25/2025 5:10 PM EDT [facility] at 1710 EDT Specimen A Adequacy Satisfactory for evaluation 08/25/2025 5:10 PM EDT [facility] Clinical Information Gross hematuria R31.0 Urine Cytology/FISH (now) 08/25/2025 5:10 PM EDT [facility] Gross Description A. Urine, Voided, [id number]: Received one ThinPrep slide for cytology and one ThinPrep slide for UroVysion FISH 08/25/2025 5:10 PM EDT [facility] Disclaimer Unless otherwise specified, all tissue is 10% NB formalin fixed and paraffin embedded. Technical pathology services provided by [facility] at [address] [facility] [address], [place] [address] (CLIA #[id number]/Beverly Atkinson MD, Yeast Cake Cutter) 08/25/2025 5:10 PM EDT [facility] Urine Urine specimen from urethra / Unknown 07/27/2025 08/03/2025 10:32 AM EDT us Placido Ramirez MD LAB CYTOLOGY ORDERABLES Final Result [facility] [address] [place] [address], documented in this encounter Visit Diagnoses Diagnosis Gross hematuria documented in this encounter Care Teams Office Technologist Relationship Specialty Start Date End Date Physician, Pcp Unknown PCP - General 08/03/25 documented as of this encounter
--- OUTSIDE RECORDS SUMMARY | 2025-09-12 09:22 | XMS_ITS | Clinical Summary ---
Author Organization [employer] Address [address] [place] [address] Care Team Providers Care Returns Processor Name Role Phone Md, Unknown Primary Care [...] Risk Screening 2017 COVID-19 Vaccine (1 - 2024-2 6 season) 2025 Influenza Vaccine (#1) 2025 RSV 60+ (1 - 1-dose 75+ series) 2027 HIB Vaccines Aged Out No longer eligi ble based on patient's age to complete this topic HPV Vaccines (No Doses Required) Completed Hepatitis A Vaccines Aged Out No long [...] topic Insurance MEDICARE COMMERCIAL GENERIC [place] [id number] Care Teams Returns Processor Relationship Specialty Start Date End Date , Unknown 1 Dont Change PCP - General 05/27/21
--- OUTSIDE RECORDS SUMMARY | 2025-09-12 09:22 | XMS_ITS | Clinical Summary ---
Author Organization [address] [facility] Address [address] [place] [address] Phone Care Team Providers Care Bit Tripoler Name Role Phone Physician, Pcp Unknown Primary Care Provider Lizzette vailable Encounters Date Type Department Care Team Description 08/03/2025 Lab Requisition [facility] - Main Lab [address] [facility] [place] [address] Placido Ramirez MD Gross hematuria from Last 3 Months Social History Tobacco Use Types Packs/Day Years Used Date Smoking Tobacco: Never Assessed Sex and Gender Information Value Date Recorded Sex Assigned at Not on file Legal Sex Male 10:22 AM EST Gender Identity Not on file Sexual Orientation Not on file Plan of Treatment Health Maintenance Due Date Last Done Comments Colorectal Cancer Screening: Colonoscopy 1952 DTaP,Tdap,and Td Vaccines (1 - Tdap) 1971 Pneumococcal Vaccine: 50+ Ye ars (1 of 1 - PCV) 2002 Zoster Vaccines (1 of 2) 2002 Depression Screening 11/17/2024 COVID-19 Vaccine (1 - 2023-2 5 season) 2025 Influenza Vaccine (#1) 2025 Abdominal Aortic Aneurysm (A AA) Screen 08/03/2025 Cholesterol Screening (Lipid Panel) 08/03/2025 Falls Risk Assessment 08/03/2025 Hepatitis C Screening 08/03/2025 Medicare Annual Wellness Visit 08/03/2025 Social Influencers of Health Screening 08/03/2025 RSV Immunization Adult Patie nts (1 - 1-dose 75+ series) 2027 HIB Vaccines Aged Out No longer eligi ble based on patient's age to complete this topic HPV Vaccines Aged Out No longer eligi ble based on patient's age to complete this topic Hepatitis A Vaccines Aged Out No long er eligible based on patient's age to complete this topic Hepatitis B Vaccines Aged Out No long er eligible based on patient's age to complete this topic IPV Vaccines Aged Out No longer eligi ble based on patient's age to complete this topic MMR Vaccines Aged Out No longer eligi ble based on patient's age to complete this topic Meningococcal ACWY Vaccine Aged Out N o longer eligible based on patient's age to complete this topic Meningococcal B Vaccine Aged Out No l onger eligible based on patient's age to complete this topic RSV Immunization Patients Un champ 20 months Aged Out No longer eligible b ased on patient's age to complete this topic Varicella Vaccines Aged Out No longer eligible based on patient's age to complete this topic Procedures Procedure Name Priority Date/Time Associated Diagnosis Comments NON-GYNECOLOGIC CYTOLOGY Routine 07/27/2025 12:00 AM EDT Gross hematuria from Last 3 Months Results * Non-gynecologic cytology (07/27/2025 12:00 AM EDT) Final Diagnosis A. Urine, Voided, [id number]: HIGH GRADE UROTHELIAL CARCINOMA Results of UroVysion fluorescence in situ hybridization (FISH) testing: CEP3: Abnormal CEP7: Abnormal CEP17: Abnormal LSI 9p21: Normal Interpretation: Abnormal profile Controls stained appropriately. Note: Abnormal results are considered suspicious for urothelial carcinoma. 08/25/2025 5:10 PM EDT [facility] at 1710 EDT Specimen A Adequacy Satisfactory for evaluation 08/25/2025 5:10 PM EDT [facility] Clinical Information Gross hematuria R31.0 Urine Cytology/FISH (now) 08/25/2025 5:10 PM EDT [facility] Gross Description A. Urine, Voided, [id number]: Received one ThinPrep slide for cytology and one ThinPrep slide for UroVysion FISH 08/25/2025 5:10 PM EDT [facility] Disclaimer Unless otherwise specified, all tissue is 10% NB formalin fixed and paraffin embedded. Technical pathology services provided by [facility] at [address], [place] [address] (CLIA #[id number]/Beverly Atkinson MD, Wind Farm Designer) 08/25/2025 5:10 PM EDT [facility] ([facility]) [facility] Urine Urine specimen from urethra / Unknown 07/27/2025 08/03/2025 10:32 AM EDT us Placido Ramirez MD LAB CYTOLOGY ORDERABLES Final Result [facility] ([facility]) [facility] [address] [place] [address], [place] [phone] from Last 3 Months Insurance MEDICARE Care Teams Bit Tripoler Relationship Specialty Start Date End Date Physician, Pcp Unknown PCP - General 08/03/25
== END 2025-09-12 09:28 | disposition home or self-care (01) ==
PROVIDERS: PCP Physician Assistant; Visit Provider Physician Assistant
DX: C61 Malignant neoplasm of prostate (principal); I10 Essential (primary) hypertension; R73.03 Prediabetes; M1A.9XX0 Chronic gout, unspecified, without tophus (tophi); N32.89 Other specified disorders of bladder

== ENCOUNTER 2025-09-12 09:37 | Outpatient (REF) | payer MEDICARE, OTHER, SELFPAY ==
[2025-09-12 13:29] LABS: Alanine Aminotransferase 31 U/L (0-40); Albumin Level 4.4 g/dL (3.5-5.0); Alkaline Phosphatase 81 U/L (39-117); Anion Gap 11 (12-20); Aspartate Amino Transferase 30 U/L (5-37); Blood Urea Nitrogen 12 mg/dL (9-16); Calcium 9.3 mg/dL (8.4-10.2); Carbon Dioxide 32 mmol/L (22-29); Chloride 103 mmol/L (96-108); Cholesterol 122 mg/dL (<200); Estimated Glomerular Filt Rate > 60; HDL Cholesterol 37 mg/dL (>40); Potassium 4.2 mmol/L (3.3-5.1); Sodium 142 mmol/L (135-145); Total Protein 6.8 g/dL (6.5-8.0); Triglycerides 74 mg/dL (<150)
== END 2025-09-12 09:38 | disposition home or self-care (01) ==
LOC: HO.10HDL 09:37
PROVIDERS: Visit Provider Physician Assistant
DX: I10 Essential (primary) hypertension (principal); R73.03 Prediabetes; C61 Malignant neoplasm of prostate; M1A.9XX0 Chronic gout, unspecified, without tophus (tophi)
CPT/HCPCS: 36415; 80048; 80061; 80076; 83036; 99202

== ENCOUNTER 2025-10-18 07:50 | Outpatient (AMB) | payer MEDICARE, OTHER, SELFPAY ==
--- NOTE | 2025-10-18 07:53 | MHC.PC.OV ---
Vital Signs 10/18/25 08:03 10/18/25 08:15 Height 6 ft 3.4 in Weight 105.46 kg BMI 28.7 BP 200/90 H 156/80 H Respiration 16 Pulse 73 Pulse Source Pulse Oximeter Temp 97.9 F Temp Source Oral Pulse Oximetry (%) 98 Oxygen Delivery Method Room Air Intake Visit Reasons: BP Concerns-See Comments Wood Heel Flap Inserter Required: No Accompanied by: Self / Same As Patient Allergies caffeine (Caffeine) Allergy (Mild, Verified 10/18/25 07:53) PALPATATIONS Medication List - Last Reconciled 10/18/25 by JOSE ELIAS Espinoza allopurinol 100 mg PO DAILY amlodipine 5 mg PO DAILY betamethasone dipropionate 0.05% appl topical BID PRN furosemide 20 mg PO DAILY lisinopril 40 mg PO DAILY sildenafil 50 mg PO Q OTHER DAY PRN Tobacco use date assessed: 02/21/25 Dental Screening Dental Screen Date: 02/21/25 HPI HPI Comments History of Present Illness Details 75-year-old male with history of hypertension, prediabetes, hyperlipidemia, chronic gout, macular degeneration, prostate cancer presenting to the office today for follow-up. Hypertension-recent history of elevated blood pressure in the offices. Was scheduled for renal biopsy but not performed due to sbp in 200s. Has been checking BP with average SBP high 140s, highest 168, lowest 128. Asymptomatic. Denies any obvious anxiety but does have significant stressors including his 's breast cancer and his bladder cancer. 24 trips to appts in last 80 days. On furosemide 20 mg daily, but not always taking due to side effects, and lisinopril 40 mg daily. SBP must be below 140 for procedure Chronic gout- stable on allopurinol 100 mg daily Macular degeneration-follows with ophtho Prostate cancer/bladder mass-follows with Dr. Ramirez at [facility]. s/p external beam radiation completed 07/2016 and 6 months of androgen deprivation therapy 04/2016.. Recently found to have bladder mass. 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 He will be establishing care with [facility] for 2nd opinion at the recommendation of his urologist. 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 Per patient, Dr. Ramirez not overly concerned about lesion at this time. He has also been referred to IR for renal mass biopsy. Follow up with Dr. Ramirez and will be initiation care with [facility] 10/28. Recent Ct chest ordered by urology: FINDINGS: Splenomegaly Indeterminate right renal lesion corresponds to a hemorrhagic cyst on recent MRI. Too small to characterize low-attenuation focus in the right hepatic lobe is likely a small cyst 0.7 cm perifissural right middle lobe nodule image 62 series 3. 0.4 cm nodule at the right lung base image 77 series 3. 0.6 cm subsolid perifissural right upper lobe nodule image 33 series 3. 0.5 cm subsolid perifissural nodule in the right upper lobe image 39 series 3 A few scattered calcified granulomata. IMPRESSION: Pulmonary nodules are outlined above. Largest is a 0.7 cm perifissural nodule in the right middle lobe. Small scattered calcified granulomata are also noted. Noncalcified nodules may be infectious or inflammatory. Perifissural nodules may be benign intrapulmonary lymph nodes but metastatic nodules are not excluded. Consider 3-6 month follow-up. Health maintenance: Last colonoscopy 09/2018 with 5 year follow-up advised. Dr. Mcintosh ROS: see hpi EXAM: Constitutional - Awake and Alert, No apparent distress Eyes - PERRL Cardiovascular - S1S2, RRR Respiratory - Normal lung expansion, Normal respiratory effort, No respiratory distress, CTA bilaterally Skin - Warm/Dry Neurological - Alert & oriented x3 Psychological - Appropriate affect PFSH Medical History (Updated 10/18/25 @ 09:24 by JOSE ELIAS Espinoza) Renal lesion Bladder cancer Bladder mass Macular degeneration Chronic gout Basal cell carcinoma (BCC) Pre-diabetes Essential hypertension Prostate cancer Surgical History (Updated 09/16/25 @ 08:10 by JOSE ELIAS Espinoza) History of transurethral resection of bladder tumor (TURBT) History of colonoscopy (09/23/18) Family History (Updated 02/21/25 @ 09:08 by Nancy Lerma MA) Mother No problems noted. Father No problems noted. Social History Housing: House Patient Tobacco Use Status: Former Tobacco user Years Smoked: 10 years-quit 40 yrs ago e-Cigarette/Vaping Use: Never Used service: No Current occupational status: retired Cognitive needs: No Hearing needs: No Vision needs: Yes (rx glasses) Questionnaire Thrive Questionnaire Date Thrive assessed: 02/21/25 AUDIT C Alcohol Use Questionnaire (AUDIT-C) 2. How many drinks containing alcohol do you have on a typical day when you are drinking?: 3 or 4 3. How often do you have six or more drinks on one occasion?: Less than monthly Total Score: 2 ALEJANDRO-7 AMB Questionnaire ALEJANDRO-7 Date ALEJANDRO - 7 assessed: 02/21/25 Source: Developed by Drs. Cristóbal Duckworth, Robyn Hauser, Primo Oleary and colleagues, with an educational diego from [employer]. Physical exam (Primary Care) Vital Signs: Last Vital Signs Temp 97.9 F 10/18/25 08:03 Pulse 73 10/18/25 08:03 Resp 16 10/18/25 08:03 BP 156/80 H 10/18/25 08:15 Pulse Ox 98 10/18/25 08:03 Oxygen Delivery Method Room Air 10/18/25 08:03 BMI result Body Mass Index 28.7 Tobacco/Smoking Status: Tobacco use Status Tobacco use date assessed 02/21/25 10/18/25 07:55 Patient Tobacco Use Status Former Tobacco user 10/18/25 07:55 e-Cigarette/Vaping Use Never Used 10/18/25 07:55 Thrive Assessment: Date of Thrive Assessment Date Thrive assessed 02/21/25 10/18/25 07:55 Coding Level of Care Code Est Pt Level 4 (77361) Complex visit Add On G2211 Diagnoses Essential hypertension I10 Bladder cancer C67.9 Renal lesion N28.9 Pulmonary nodules R91.8 Assessment & Plan Assessment & Plan (1) Essential hypertension: Code(s): I10 - Essential (primary) hypertension Category: Medical Plan: Uncontrolled on recheck and variable. Supsect related to significant stress though on average is uncontrolled at home too. Can only undergo renal biopsy if sbp <200. Add amlodipine 5mg daily. Continue lisinopril and furosemide prn. Continue checking blood pressures and reach out the office with readings as well as reading at [facility] . Discussed the addition of lorazepam pre-procedure which will likely improve blood pressures as well. Discussed this is commonly used prior to procedure but he will check the list of medications to avoid preprocedure and all discuss with his surgeon. He will let me know and can consider prescription. (2) Bladder cancer: Comment: Dr. Ramirez at [facility]. s/p external beam radiation completed 07/2016 and 6 months of androgen deprivation therapy 04/2016.. Recently found to have bladder mass. 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 He will be establishing care with [facility] for 2nd opinion at the recommendation of his urologist Code(s): C67.9 - Malignant neoplasm of bladder, unspecified Category: Medical Plan: Reviewed last urology note. 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 Referred to IR Code(s): N28.9 - Disorder of kidney and ureter, unspecified Category: Medical Plan: Follow up with IR (4) Pulmonary nodules: Comment: 3. 0.4 cm nodule at the right lung base image 77 series 3. 0.6 cm subsolid perifissural right upper lobe nodule image 33 series 3. 0.5 cm subsolid perifissural nodule in the right upper lobe image 39 series 3 A few scattered calcified granulomata. IMPRESSION: Pulmonary nodules are outlined above. Largest is a 0.7 cm perifissural nodule in the right middle lobe. Small scattered calcified granulomata are also noted. Noncalcified nodules may be infectious or inflammatory. Perifissural nodules may be benign intrapulmonary lymph nodes but metastatic nodules are not excluded. Consider 3-6 mon Code(s): R91.8 - Other nonspecific abnormal finding of lung field Category: Medical Plan: Reviewed CT chest w contrast from [facility] showing multiple nodule possibly benign vs malignant. Awaiting call back from Dr. Ramirez's office, ordering provider, to establish plan for comanagement. 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
--- OUTSIDE RECORDS SUMMARY | 2025-10-18 07:54 | XMS_ITS | Clinical Summary ---
Author Organization [employer] Address [address] [place] [address] Care Team Providers Care Catering And Events Manager Name Role Phone Md, Unknown Primary Care [...] topic Insurance MEDICARE COMMERCIAL GENERIC [place] [id number] Care Teams Catering And Events Manager Relationship Specialty Start Date End Date , Unknown 1 Dont Change PCP - General 05/27/21
--- OUTSIDE RECORDS SUMMARY | 2025-10-18 07:54 | XMS_ITS | Clinical Summary ---
Author Organization [address] [facility] Address [address] [place] [address] Phone Care Team Providers Care Workplace Rehabilitation Officer Name Role Phone Physician, Pcp Unknown Primary Care Provider Lizzette vailable Encounters Date Type Department Care Team Description 09/13/2025 Lab Requisition [facility] [address] [place] [address] Placido Ramirez MD Malignant neoplasm of dome of bladder ([facility] V24, [facility] V28) 08/03/2025 Lab Requisition [facility] [address] [place] [address] Placido Ramirez MD Gross hematuria [...] Depression Screening 11/17/2024 COVID-19 Vaccine (1 - 2024-2 6 season) 2025 Influenza Vaccine (#1) 2025 Abdominal [...] Procedure Name Priority Date/Time Associated Diagnosis Comments TISSUE EXAM Routine 09/08/2025 Malignant neoplasm of dome of bladder ([facility] V24, [facility] V28) NON-GYNECOLOGIC CYTOLOGY Routine 07/27/2025 12:00 AM EDT Gross hematuria from Last 3 Months Results * Tissue Exam (09/08/2025) Final Diagnosis A. Urinary Bladder, TURBT: - Invasive adenocarcinoma with enteric differentiation. (See note) - Tumor involves muscularis propria. - Immunohistochemistry: - NKX 3.1: negative. - CDX2: patchy positive. - GATA3: positive in a subset of tumor. - CK7: focally positive. - CK20: focally positive. - Beta catenin: cytoplasmic staining in tumor. Note: Per clinical information, the site of procedure is from bladder dome. The tumor consists of invasive adenocarcinoma with enteric differentiation. The main differential diagnosis is between an urachal primary versus bladder primary. Clinicopathologic correlation is recommended. Dr. Mk Ramirez was notified of the diagnosis via [employer] application by Dr. Dylan Atkinson on 09/15/25 at 9:[address] Derek Rushing agrees with the above diagnosis. Immunostains performed above were medically necessary for tumor characterization and supports the above diagnosis. 10:15 AM EDT [facility] at 1015 EDT Clinical Information Z85.51 - H/O bladder neoplasm (malignant) C67.1 [id number] 10:15 AM EDT [facility] Gross Description A. Urinary Bladder, : Labeled Bladder tumor . Received in formalin is a 2.1x1.8x0.7 cm aggregate of friable, pink-medrano tissue fragments. The specimen is wrapped in paper and submitted in toto in 3 cassettes, multiple pieces each. /al 10:15 AM EDT [facility] Disclaimer NOTE: The immunohistochemical tests and in situ hybridization tests were developed and their performance characteristics were determined by [facility]. They have not been cleared or approved by the U.S. Food and Drug Administration. The FDA has determined that such clearance or approval is not necessary. These tests are used for clinical purposes. They should not be regarded as investigational or for research. This laboratory is certified under the Clinical Laboratory Improvement Amendments of 1988 (CLIA) as qualified to perform high complexity clinical laboratory testing. (controls appropriate) Unless otherwise specified, all tissue is 10% NB formalin fixed and paraffin embedded. Technical pathology services provided by [facility] at [address], [address] (CLIA #[id number]/Nevin Atkinson MD, Digital Sales Director) 10:15 AM EDT [facility] Tissue Urinary bladder structure / Unknown 09/08/2025 09/13/2025 11:15 AM EDT Placido Ramirez MD LAB PATHOLOGY ORDERABLES Final Result [facility] [address] [place] [address], * Non-gynecologic cytology (07/27/2025 12:00 AM EDT) Final Diagnosis A. Urine, Voided, [id number]: HIGH GRADE UROTHELIAL CARCINOMA Results of UroVysion fluorescence in situ hybridization (FISH) testing: CEP3: Abnormal CEP7: Abnormal CEP17: Abnormal LSI 9p21: Normal Interpretation: Abnormal profile Controls stained appropriately. Note: Abnormal results are considered suspicious for urothelial carcinoma. 08/25/2025 5:10 PM EDT [facility] at 1710 EDT Specimen A Adequacy Satisfactory for evaluation 08/25/2025 5:10 PM EDT [facility] Clinical Information Gross hematuria R31.0 Urine Cytology/FISH (now) 08/25/2025 5:10 PM EDT [facility] Gross Description A. Urine, Voided, [id number]: Received one ThinPrep slide for cytology and one ThinPrep slide for UroVysion FISH 08/25/2025 5:10 PM EDT [facility] Disclaimer Unless otherwise specified, all tissue is 10% NB formalin fixed and paraffin embedded. Technical pathology services provided by [facility] at [address] [place] [address] [address], [place] [address] (CLIA #[id number]/Beverly Atkinson MD, Digital Sales Director) 08/25/2025 5:10 PM EDT [facility] Urine Urine specimen from urethra / Unknown 07/27/2025 08/03/2025 10:32 AM EDT us Placido Ramirez MD LAB CYTOLOGY ORDERABLES Final Result [facility] [address] [place] [address], from Last 3 Months Insurance MEDICARE [facility] Care Teams Workplace Rehabilitation Officer Relationship Specialty Start Date End Date Physician, Pcp Unknown PCP - General 08/03/25
--- OUTSIDE RECORDS SUMMARY | 2025-10-18 07:54 | XMS_ITS | Encounter Summary ---
Author Organization [facility] Address [address] [place] [address] Care Team Providers Care Forestry Biology Specialist Name Role Phone Physician, Pcp Unknown Primary Care Provider Lizzette vailable Encounter Details Date Type Department Care Team (Late st Contact Info) Description 08/03/[address] [facility] - Main Lab [address] [facility] [place] [address] Placido Ramirez MD [address] [place] [phone] Gross hematuria Social History Tobacco Use Types [...] AM EDT) Final Diagnosis A. Urine, Voided, [id number]: HIGH GRADE UROTHELIAL CARCINOMA Results of UroVysion fluorescence in situ hybridization (FISH) testing: CEP3: Abnormal CEP7: Abnormal CEP17: Abnormal LSI 9p21: Normal Interpretation: Abnormal profile Controls stained appropriately. Note: Abnormal results are considered suspicious for urothelial carcinoma. 08/25/2025 5:[address] [facility] ([facility] at 1710 EDT Specimen A Adequacy Satisfactory for evaluation 08/25/2025 5:10 PM EDT [facility] Clinical Information Gross hematuria R31.0 Urine Cytology/FISH (now) 08/25/2025 5:10 PM EDT [facility] Gross Description A. Urine, Voided, [id number]: Received one ThinPrep slide for cytology and one ThinPrep slide for UroVysion FISH 08/25/2025 5:10 PM EDT [facility] Disclaimer Unless otherwise specified, all tissue is 10% NB formalin fixed and paraffin embedded. Technical pathology services provided by [facility] at [address] [facility] [address], [place] [address] (CLIA #[id number]/Beverly Atkinson MD, Application Design Engineer) 08/25/2025 5:10 PM EDT [facility] Urine Urine specimen from urethra / Unknown 07/27/2025 08/03/2025 10:32 AM EDT us Placido Ramirez MD LAB CYTOLOGY ORDERABLES Final Result [facility] [address] [place] [address], documented in this encounter Visit Diagnoses Diagnosis Gross hematuria documented in this encounter Care Teams Forestry Biology Specialist Relationship Specialty Start Date End Date Physician, Pcp Unknown PCP - General 08/03/25 documented as of this encounter
--- OUTSIDE RECORDS SUMMARY | 2025-10-18 07:54 | XMS_ITS | Encounter Summary ---
Author Organization [facility] Address [address] [place] [address] Care Team Providers Care Home Health Rn Name Role Phone Physician, Pcp Unknown Primary Care Provider Lizzette vailable Encounter Details Date Type Department Care Team (Late st Contact Info) Description 09/13/[address] [facility] - Main Lab [address] [facility] [place] [address] Placido Ramirez MD [address] [place] [address] Malignant neoplasm of dome of bladder ([facility] V24, [facility] V28) Social History Tobacco Use Types Packs/Day Years [...] 09/08/2025 Malignant neoplasm of dome of bladder ([facility] V24, [facility] V28) documented in this encounter Results * Tissue Exam (09/08/2025) Final Diagnosis [...] Ramirez was notified of the diagnosis via [employer] messaging application by Dr. Dylan Atkinson on 09/15/25 at 9:[address] Derek Rushing agrees with the above diagnosis. Immunostains performed above were medically necessary for tumor characterization and supports the above diagnosis. 10:15 AM EDT [facility] at 1015 EDT Clinical Information Z85.51 - H/O bladder neoplasm (malignant) C67.1 [id number] 10:15 AM EDT [facility] Gross Description A. Urinary Bladder, : Labeled Bladder tumor . Received in formalin is a 2.1x1.8x0.7 cm aggregate of friable, pink-medrano tissue fragments. The specimen is wrapped in paper and submitted in toto in 3 cassettes, multiple pieces each. /al 10:15 AM EDT [facility] Disclaimer NOTE: The immunohistochemical tests and in situ hybridization tests were developed and their performance characteristics were determined by [facility]. They have not been cleared [...] paraffin embedded. Technical pathology services provided by [facility] at [address], [place] [address] (CLIA #[id number]/Nevin Atkinson MD, Die Tester) 10:15 AM EDT [facility] Tissue Urinary bladder structure / Unknown 09/08/2025 09/13/2025 11:15 AM EDT us Placido Ramirez MD LAB PATHOLOGY ORDERABLES Final Result [facility] ([facility] [address] [place] [address], documented in this encounter Visit Diagnoses Diagnosis Malignant neoplasm of dome of bladder (CMS/HCC V24, CMS/HCC V28) Malignant neoplasm of dome of urinary bladder documented in this encounter Care Teams Home Health Rn Relationship Specialty Start Date End Date Physician, Pcp Unknown PCP - General 08/03/25 documented as of this encounter
[2025-10-18 08:03] VITALS: BP 200/90; PULSE 73; RESP 16; TEMP 36.6; O2SAT 98; BMI 28.7
[2025-10-18 08:15] VITALS: BP 156/80
== END 2025-10-18 08:36 | disposition home or self-care (01) ==
LOC: HO.HMCHD 07:50
PROVIDERS: PCP Physician Assistant; Visit Provider Physician Assistant
DX: I10 Essential (primary) hypertension (principal); C67.9 Malignant neoplasm of bladder, unspecified; N28.9 Disorder of kidney and ureter, unspecified; R91.8 Other nonspecific abnormal finding of lung field

== ENCOUNTER → 2025-10-18 07:50 | Outpatient (BNVA) | payer MEDICARE, OTHER, SELFPAY | PROVIDERS: PCP Physician Assistant; Visit Provider Physician Assistant | DX: I10 Essential (primary) hypertension (principal); C67.9 Malignant neoplasm of bladder, unspecified; N28.9 Disorder of kidney and ureter, unspecified; R91.8 Other nonspecific abnormal finding of lung field; M10.9 Gout, unspecified; H35.30 Unspecified macular degeneration | CPT/HCPCS: 99212 ==